=== PATIENT | female | born 1965 | race Caucasian/White ===

== ENCOUNTER 2017-04-06 13:36 | Emergency (ER) | payer BC ==
[2017-04-06 13:54] VITALS: BP 142/95
--- NOTE | 2017-04-08 09:42 | ER ---
DATE SEEN: 04/06/2017 HISTORY OF PRESENT ILLNESS: This 51-year-old 2, para 2 woman who works at [employer] approximately 48 hours a week, noticed for the last several days, she has had crampy left and right lower legs. No associated leg swelling. 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 In the past, she has had previous diagnosis of right knee arthritis and has had arthroscopy with clearing of debris and bone fragments. She has been advised that within the next 5+ or less years, she will probably need a right total knee. She has been told she is walking with "[id number]" in her legs. One year ago , she had cellulitis in her right lower extremity and she was hospitalized for several days. She follows up with Dr. Dorado. She is 251 pounds, nonsmoker, and no recent trauma in her lower extremities. No history of previous DVT. She has not been coughing up blood, is not on estrogens, nor does she have leg swelling. No previous surgery in her lower extremities. No history of rheumatism or connective tissue disease. ALLERGIES: None. MEDICATIONS: 1. Terbinafine daily. 2. Meloxicam daily. 3. Amoxil, more recently. The patient notes she was seen in the clinic on 04/02/2017 and had a bad cold, was treated with Augmentin. REVIEW OF SYSTEMS: Otherwise is negative, except as noted above. PHYSICAL EXAMINATION: VITAL SIGNS: Blood pressure 142/95, heart rate 89, respirations 18, oxygen saturation 98% on room air. No tachycardia. Temperature is 36.9 degrees. CONSTITUTION: The patient is overweight. Very pleasant, has good eye contact. Well dressed and well muscled. Has a pear- shaped abdomen. HEENT: PERRLA, intact. Pharynx without abnormality. NECK: No jugular venous distention. No thyromegaly. No adenopathy. LUNGS: Clear to auscultation without rales, rhonchi, or wheezes. HEART: S1, S2. No murmur. No splitting in the heart sounds. ABDOMEN: Nontender. No hepatic or splenomegaly. Soft. No guarding. No abdominal discomfort. Increased abdominal girth. INGUINAL REGION: Right inguinal region: No nodes noted. Left inguinal region: Mild enlargement of nodes. Nontender. LOWER EXTREMITIES: Dorsalis pedis intact. 1+ edema in bilateral lower extremities. She has papg-ds-[id number] tenderness of an area of 9 cm x 5 cm x 4 cm, which is approximately just below the large muscle mass of the gastroc (in the area of the enthesis or fibrosis or tendinosis that extends distally to the posterior calcaneus). This area, the middle-third of it is mildly tender. It is mildly indurated but no vascular changes noted. She has superficial varicosities that are visible on the subcutaneous tissue but they are not dilated. No increased prominence. No vascular linear excrescence palpated. LABORATORY DATA: D-dimer is 681 (normal is less than 400). White count is normal, no leukocytosis, no left shift, 8700, PMN 73, lymphocytes 17, monos 6, hemoglobin 14, platelets 352,000. Normal electrolytes except for potassium is low at 3.4. Slightly elevated 8.3 protein. Remainder of the automated chemistry is normal. Sodium 138, chloride 102, bicarb 28, BUN 11, creatinine 0.8. GFR is normal at greater than 60. Glucose 108 and calcium normal at 9.2. Liver enzymes and bilirubin are normal. ASSESSMENT: Probability of having a deep vein thrombosis of the lower extremities or pulmonary embolism is very low. The predictive index score not over one for Wells criteria.The probability for a pulmonary embolism is very low. In terms of deep vein thrombosis, score is still less than one with a low probability of having DVT. She does not have the alternative diagnosis of Warren cyst, cellulitis, muscle damage, post phlebitic syndrome, inguinal adenopathy, external venous compression. Knowing that elevation of D-dimer does not result in a stand alone diagnosis, even with a modified Wells score; a score of one has less than 3% probability of deep vein thrombosis. With this information, we discussed having to perform an ultrasound today or having within two days. She would like very much to not have an ultrasound done today and is willing to wait two or three days (Saturday or Saturday). She will have to see Dr. Dorado or a suitable healthcare provider, so they can order these tests as I would not be here those days. DIAGNOSES: 1. Localized small area of posterior tendinosis of gastroc of 8 x 4-5 cm without vascular abnormality. Most likely, tendinous strain in structure. Servin test is negative. No evidence for ruptured Achilles. 2. She may have Achilles tendinosis, is standing excessively. 3. Obesity, 251 pounds. 4. Already has extensive right knee arthritis and [id number]-fb-[id number] changes. 5. She has received Augmentin 875/125 on 04/05/2017 which is used for treating bronchitis. At present, no sign of infection. I have spoken to Dr. Dyer at [facility] to arrange potential ultrasound and he is available as the ER doctor to arrange if she should choose to go there. At present, she has chosen not to do this. She would like to wait and have consideration of ultrasound performed earlier this week. Ultrasound is available, Saturday. Consequently perhaps ultrasound could be obtained on 04/08/2017. /[id number] ELE/RUFINO KIM
== END 2017-04-06 16:00 | disposition home or self-care (01) ==
LOC: FB.ED 13:36
DX: M17.11 Unilateral primary osteoarthritis, right knee (principal); E66.9 Obesity, unspecified; Z79.899 Other long term (current) drug therapy; Z68.36 Body mass index [BMI] 36.0-36.9, adult
CPT/HCPCS: 36415; 80053; 85025; 85379; 99283

== ENCOUNTER 2018-07-30 07:43 | Day surgery (SDC) | payer BC ==
[2018-07-30] MEDS ORDERED: Propofol 200 MG/20 ML SDV IV ONE (07:44)
[2018-07-30] MEDS ORDERED: Midazolam 1 MG/ML 2 ML SDV IV ONE (07:44)
[2018-07-30] MEDS ORDERED: Lactated Ringers 1,000 ML IV SCH (09:45)
--- NOTE | 2018-07-30 09:47 | PCM.OPNOTE ---
- General Post-Op/Procedure Note Date of Surgery/Procedure: 07/30/18 Operative Procedure(s): c scope with bx Findings: transverse colon polyp Pre Op Diagnosis: screening Post-Op Diagnosis: colon polyp Anesthesia Technique: MAC Primary Surgeon: Bello Tineo Anesthesia Provider: Emely Eid Pathology: colon polyp Complications: None Condition: Good Free Text/Narrative:: see dictation
--- NOTE | 2018-07-30 10:15 | OR ---
DATE OF OPERATION: 07/30/2018 SURGEON: Bello Tineo MD PROCEDURE PERFORMED: Colonoscopy with cold forceps biopsy. PREOPERATIVE DIAGNOSIS: Need for screening C-scope. POSTOPERATIVE DIAGNOSIS: Transverse colon polyp. INDICATIONS FOR PROCEDURE: This is a 53-year-old white female who is referred for screening colonoscopy. She was offered and accepted same. DESCRIPTION OF OPERATION: After an excellent IV sedation was administered, digital rectal exam was performed. No marked abnormality was noted. Flexible colonoscope was inserted and advanced to the cecum without difficulty. Prep was adequate. There were areas of liquid stool that we had to irrigate, but we did get a good view of the colon. Following findings were noted. Ascending colon, unremarkable. Transverse colon and mid transverse colon have flat polypoid appearing lesion, biopsied with cold biopsy forceps, and sent for permanent. Descending colon, unremarkable. Sigmoid and rectum, unremarkable. Colon was deflated. Scope was removed. Results by letter. /[id number] ANNE/RUFINO
[2018-07-30 10:35] VITALS: BP 148/88
== END 2018-07-30 11:42 | disposition home or self-care (01) ==
LOC: FB.SDS 07:43
PROVIDERS: ATTEND Surgery
DX: Z12.11 Encounter for screening for malignant neoplasm of colon (principal); D12.3 Benign neoplasm of transverse colon; J45.909 Unspecified asthma, uncomplicated
CPT/HCPCS: 88305; J2250; J2704; J7120